=== PATIENT | female | born 1985 | race American Indian/Alaskan Native ===

== ENCOUNTER 2017-09-15 12:40 | Emergency (ER) | payer MEDICAID ==
[2017-09-15 12:56] VITALS: PULSE 84; RESP 18; TEMP 98.4
--- NOTE | 2017-09-15 13:58 | ED PDOC ---
Arrival/HPI - General Chief Complaint: Cough, Cold, Congestion Time Seen by Provider: 09/15/17 13:28 - History of Present Illness Narrative History of Present Illness (Text): 31 y/o F c no significant PMHx p/w cough, congestion, and L sided neck pain x 3 days. Patient reports no production of sputum. Denies fever or stiff neck. Reports rhinorrhea. States that she has pain on the L sided neck under jaw that is painful when she presses it. Denies sick contacts, recent travel. Patient is here with son, who is also registered as an ED patient. Past Medical History - Infectious Disease Hx of Infectious Diseases: None - Reproductive Menopause: No - Psychiatric Hx Substance Use: No - Surgical History Hx Section: Yes Other/Comment: hernia - Anesthesia Hx Anesthesia: No Family/Social History Family/Social History: No Known Family HX Smoking Status: Unknown If Ever Smoked Hx Alcohol Use: No Hx Substance Use: No Allergies/Home Meds Allergies/Adverse Reactions: Allergies No Known Allergies Allergy (Verified 09/15/17 12:57) Review of Systems - Physician Review All systems were reviewed & negative as marked: Yes - Review of Systems Constitutional: absent: Fevers Respiratory: absent: SOB Physical Exam - Physical Exam Narrative Physical Exam (Text): Constitutional: No acute distress. Head: Normocephalic. Atraumatic. Eyes: PERRL. ENT: Moist mucous membranes. Neck: Supple. L sided lymphadenopathy. Cardiovascular: Regular rate. Chest: No tenderness. Respiratory: Clear to auscultation bilaterally. GI: Soft. Nontender. Nondistended. Back: No CVA tenderness. Musculoskeletal: No tenderness or swelling of extremities. Skin: No rash. Neurologic: Alert, no focal deficit. Vital Signs Temp Pulse Resp BP Pulse Ox 09/15/17 13:04 130/69 09/15/17 12:52 98.4 F 84 18 116/97 H 95 Medical Decision Making ED Course and Treatment: Toradol for pain, f/u PMD, return to ED for fever, dyspnea, or any other problem. - Medication Orders Current Medication Orders: Discontinued Medications Ketorolac Tromethamine (Toradol) 60 mg IM STAT STA Stop: 09/15/17 13:41 Disposition/Present on Arrival - Present on Arrival Any Indicators Present on Arrival: No History of DVT/PE: No History of Uncontrolled Diabetes: No Urinary Catheter: No History of Decub. Ulcer: No History Surgical Site Infection Following: None - Disposition Have Diagnosis and Disposition been Completed?: Yes Diagnosis: URI (upper respiratory infection) Disposition: HOME/ ROUTINE Disposition Time: 13:57 Patient Plan: Discharge Patient Problems: Current Active Problems Problem Status Onset URI (upper respiratory infection) Acute Condition: STABLE Discharge Instructions (ExitCare): Lymphadenopathy (ED), Upper Respiratory Infection (ED) Prescriptions: Ibuprofen [Motrin] 600 mg PO Q6 #25 tab Referrals: Romelia Leggett MD [Primary Care Provider] - Follow up with primary Forms: [employer] (French)
[2017-09-15 15:49] VITALS: BP 132/70; O2SAT 96
== END 2017-09-15 15:10 | disposition home or self-care (01) ==
LOC: ED 12:40 → MERGE 12:40 → ED 15:10
DX: J06.9 Acute upper respiratory infection, unspecified (principal)
CPT/HCPCS: 96372; 99283; J1885

== ENCOUNTER 2018-02-23 10:20 | Emergency (ER) | payer MEDICAID ==
[2018-02-23 10:30] VITALS: BMI 32.1
--- NOTE | 2018-02-23 11:15 | ED PDOC ---
Arrival/HPI - General Chief Complaint: Abdominal Pain Time Seen by Provider: 02/23/18 11:10 Historian: Patient EM Caveat: Acuity of Condition - History of Present Illness Narrative History of Present Illness (Text): 02/23/18 11:11 Pt is a 32 yr old female with PMH of umbilical hernia repair 5 yrs ago and bartholin cysts presents today for suprapubic pain and right labial cyst pain. Pt was seen [place] [facility] [place] for the same complaint but left AMA but was advised to have CT. Reports unprotected sex, and a h/o bartholin cysts that express spontaneously. Denies fever, chills, n/v/d back pain or any other complaints. Time/Duration: < week Symptom Onset: Sudden Symptom Course: Unchanged Quality: Aching, Pressure Severity Level: 4 Context: Home Past Medical History - Provider Review Nursing Documentation Reviewed: Yes - Travel History Have you recently traveled outside [place] w/in the past 3 mons?: No - Infectious Disease Hx of Infectious Diseases: None - Psychiatric Hx Substance Use: No - Surgical History Hx Section: Yes Other/Comment: hernia - Anesthesia Hx Anesthesia: No Hx Anesthesia Reactions: No Hx Malignant Hyperthermia: No Family/Social History - Physician Review Nursing Documentation Reviewed: Yes Family/Social History: Unknown Family HX Smoking Status: Current Some Days Smoker Hx Alcohol Use: Yes Frequency of alcohol use: Socially Hx Substance Use: No Allergies/Home Meds Allergies/Adverse Reactions: Allergies No Known Allergies Allergy (Verified 09/15/17 12:57) Review of Systems - Review of Systems Constitutional: Normal Eyes: Normal ENT: Normal Respiratory: Normal Cardiovascular: Normal Gastrointestinal: Abdominal Pain. absent: Stool Changes, Constipation, Diarrhea , Nausea, Appetite Changes Genitourinary Female: Normal, Vaginal Discharge, Other (labial cyst). absent: Dysuria, Frequency, Hematuria, Urine Output Changes Musculoskeletal: Normal Skin: Normal Neurological: Normal Endocrine: Normal Hemo/Lymphatic: Normal Psychiatric: Normal Physical Exam Vital Signs Reviewed: Yes Vital Signs Pulse Resp BP Pulse Ox 02/23/18 12:22 82 16 132/88 99 Temperature: Afebrile Blood Pressure: Normal Pulse: Regular Respiratory Rate: Normal Appearance: Positive for: Well-Appearing, Non-Toxic, Comfortable Pain Distress: Mild Mental Status: Positive for: Alert and Oriented X 3 - Systems Exam Head: Present: Atraumatic, Normocephalic Pupils: Present: PERRL Extroacular Muscles: Present: EOMI Conjunctiva: Present: Normal Mouth: Present: Moist Mucous Membranes Neck: Present: Normal Range of Motion Respiratory/Chest: Present: Clear to Auscultation, Good Air Exchange. No: Respiratory Distress, Accessory Muscle Use Cardiovascular: Present: Regular Rate and Rhythm, Normal S1, S2. No: Murmurs Abdomen: Present: Normal Bowel Sounds. No: Tenderness, Distention, Peritoneal Signs Genitourinary/Pelvic Exam: Present: Vaginal Discharge (white, non-odorous), Other (bartholin cyst, non-fluctuant, tender to palpation on the right labia). No: Vaginal Bleeding, Odor Back: Present: Normal Inspection. No: CVA Tenderness, Midline Tenderness Upper Extremity: Present: Normal Inspection. No: Cyanosis, Edema Lower Extremity: Present: Normal Inspection. No: Edema Neurological: Present: GCS=15, CN II-XII Intact, Speech Normal Skin: Present: Warm, Dry, Normal Color. No: Rashes Psychiatric: Present: Alert, Oriented x 3, Normal Insight, Normal Concentration Medical Decision Making ED Course and Treatment: 02/23/18 11:14 Impression Pt is a 32 yr old female with PMH of umbilical hernia repair 5 yrs ago and bartholin cysts presents today for suprapubic pain and right labial cyst pain. Plan labs, ct, UA assess and dispo Progress note 02/23/18 12:53 Labs reviewed IMPRESSION: No acute intra-abdominal findings There is a 10 x 20 mm cyst on the left side of the vulva. This may represent a labial cyst or abscess. 02/23/18 14:20 Bacteria found on UA but no leukocyte esterase or whites Case DW Dr Awan Will give STAT dose of clindamycin 300 mg PO Home on instructions to do Sitz bath; 02/24/18 13:18 Dr Awan contacted me today after reviewing case again; suggested adding Macrobid to treat possible UTI Pt was contacted and reported feeling very well; no abdominal pain or dysuria; bartholin cyst has reduced; pt very grateful for care she received yesterday Macrobid 100mg PO BID x 7 days sent to [facility] in ; advised to take if she develops any UTI symptoms 02/24/18 13:27 - Lab Interpretations Lab Results: 02/23/18 12:00 02/23/18 12:00 Lab Results 02/23/18 12:00: Sodium 138, Potassium 3.7, Chloride 103, Carbon Dioxide 25, Anion Gap 14, BUN 13, Creatinine 0.7, Est GFR ( Amer) > 60, Est GFR (Non- Af Amer) > 60, Random Glucose 110, Calcium 9.3, Total Bilirubin 0.4, AST 52 H, ALT 41, Alkaline Phosphatase 78, Total Protein 7.8, Albumin 4.4, Globulin 3.4, Albumin/Globulin Ratio 1.3 02/23/18 12:00: Urine Color Yellow, Urine Appearance Clear, Urine pH 6.0, Ur Specific [place] >= 1.030, Urine Protein 30 H, Urine Glucose (UA) Negative, Urine Ketones Trace H, Urine Blood Negative, Urine Nitrate Negative, Urine Bilirubin Small H, Urine Urobilinogen >=8.0, Ur Leukocyte Esterase Negative, Urine RBC 0 - 2, Urine WBC 1 - 3, Ur Epithelial Cells Many, Urine Bacteria Large , Urine Other Uyeast 02/23/18 12:00: WBC 8.6, RBC 4.20, Hgb 11.4 L, Hct 34.7 L, MCV 82.6, MCH 27.1, MCHC 32.9, RDW 13.8, Plt Count 279, MPV 8.9, Gran % 75.2 H, Lymph % (Auto) 15.9 L, [place] % (Auto) 7.2 H, Eos % (Auto) 1.5, Baso % (Auto) 0.2, Gran # 6.43, Lymph # (Auto) 1.4, [place] # (Auto) 0.6, Eos # (Auto) 0.1, Baso # (Auto) 0.02 - RAD Interpretation Narrative RAD Interpretations (Text): 02/23/18 12:53 PROCEDURE: CT Abdomen and Pelvis without intravenous contrast HISTORY: abdominal pain COMPARISON: None. TECHNIQUE: Without contrast. Contrast Dose: Radiation dose: Total exam DLP = Total exam DLP = 745 mGy-cm. This CT exam was performed using one or more of the following dose reduction techniques: Automated exposure control, adjustment of the mA and/or kV according to patient size, and/or use of iterative reconstruction technique. FINDINGS: LOWER THORAX: Unremarkable. LIVER: Unremarkable. No gross lesion or ductal dilatation. GALLBLADDER AND BILE DUCTS: Unremarkable. PANCREAS: Unremarkable. No gross lesion or ductal dilatation. SPLEEN: Unremarkable. ADRENALS: Unremarkable. No mass. KIDNEYS AND URETERS: Unremarkable. No hydronephrosis. No solid mass. VASCULATURE: Unremarkable. No aortic aneurysm. BOWEL: Unremarkable. No obstruction. No gross mural thickening. APPENDIX: Unremarkable. Normal appendix. PERITONEUM: Unremarkable. No free fluid. No free air. LYMPH NODES: Unremarkable. No enlarged lymph nodes. BLADDER: Unremarkable. REPRODUCTIVE: There is a 10 x 20 mm cyst on the left side of the vulva. This may represent a labial cyst or abscess. Image 166 series 3 BONES: No acute fracture. OTHER FINDINGS: None. IMPRESSION: No acute intra-abdominal findings There is a 10 x 20 mm cyst on the left side of the vulva. This may represent a labial cyst or abscess. 02/24/18 13:24 Radiology Orders: 02/23/18 11:15 ABD & PELVIS W/O PO OR IV CONT [CT] Stat - Medication Orders Current Medication Orders: Discontinued Medications Clindamycin HCl (Cleocin) 300 mg PO STAT STA PRN Reason: Protocol Stop: 02/23/18 13:52 Last Admin: 02/23/18 14:02 Dose: 300 mg Disposition/Present on Arrival - Present on Arrival Any Indicators Present on Arrival: Yes History of DVT/PE: No History of Uncontrolled Diabetes: No Urinary Catheter: No History of Decub. Ulcer: No History Surgical Site Infection Following: None - Disposition Have Diagnosis and Disposition been Completed?: Yes Diagnosis: Bartholin gland cyst, Screen for STD (sexually transmitted disease) Disposition: HOME/ ROUTINE Disposition Time: 12:57 Patient Plan: Discharge Condition: GOOD Discharge Instructions (ExitCare): Urinary Tract Infection, Adult (DC), Bartholin's Gland Cyst Additional Instructions: Philomena, thank you for letting us take care of you today. Your provider was DAI Diaz. You were treated for a UTI and Bartholin Gland Cyst. The emergency medical care you received today was directed at your acute symptoms. If you were prescribed any medication, please fill it and take as directed. It may take several days for your symptoms to resolve. Return to the Emergency Department if your symptoms worsen, do not improve, or if you have any other problems. We recommend a Sitz Bath for 2 days and 7 days of an antibiotic to help with your cyst. Please see your supervisory forester in the next few days for care Please contact your doctor or call one of the physicians/clinics you have been referred to that are listed on the Patient Visit Information form that is included in your discharge packet. Bring any paperwork you were given at discharge with you along with any medications you are taking to your follow up visit. Our treatment cannot replace ongoing medical care by a primary care provider (PCP) outside of the emergency department. Thank you for allowing the [facility] team to be part of your care today. If you had an X-Ray or CT scan: A Radiologist will review the ED reading if any change in treatment is needed we will contact you. If you had a blood, urine, or wound culture: It will take several days for the results, if any change in treatment is needed we will contact you. If you had an STI test: It will take 48 hours for the results. Please call after 1 week if you have not heard back. Prescriptions: Clindamycin [Cleocin] 300 mg PO QID 7 Days #28 cap Nitrofurantoin Macrocrystals [Macrobid] 100 mg PO BID 7 Days #14 cap Forms: [employer] ([place]), WORK NOTE
[2018-02-23 12:30] LABS: BASO # 0.02 K/mm3 (0.0-2.0); BASO % 0.2 % (0.0-3.0); EOS # 0.1 (0.0-0.7); EOS % 1.5 % (1.5-5.0); GRAN # 6.43 (1.4-6.5); GRAN % 75.2 % (50.0-68.0); HEMOGLOBIN 11.4 g/dL (12.0-16.0); LYMPH # 1.4 (1.2-3.4); LYMPH % 15.9 % (22.0-35.0); MEAN CELL VOLUME 82.6 fl (80.0-105.0); MEAN CORPUSCULAR HEMOGLOBIN 27.1 pg (25.0-35.0); MEAN CORPUSCULAR HGB CONC 32.9 g/dl (31.0-37.0); MEAN PLATELET VOLUME 8.9 fl (7.0-11.0); MONO # 0.6 (0.1-0.6); MONO % 7.2 % (1.0-6.0); RBC 4.2 10^6/uL (3.5-6.1); RED CELL DISTRIBUTION WIDTH 13.8 % (11.5-14.5); WHITE BLOOD COUNT 8.6 10^3/ul (4.5-11.0)
[2018-02-23 12:34] LABS: URINE BILIRUBIN SMALL (NEGATIVE); URINE BLOOD NEGATIVE (NEGATIVE); URINE GLUCOSE (UA) NEGATIVE (NEGATIVE); URINE LEUKOCYTE ESTERASE NEGATIVE Leu/uL (NEGATIVE); URINE PROTEIN 30 mg/dL (<30 mg/dL); URINE UROBILINOGEN >=8.0 E.U./dL (<1 E.U./dL)
[2018-02-23 12:38] LABS: URINE APPEARANCE CLEAR (CLEAR); URINE COLOR YELLOW (YELLOW)
[2018-02-23 12:40] LABS: ALB/GLOB RATIO 1.3 (1.1-1.8); ALBUMIN 4.4 g/dL (3.0-4.8); ALT/SGPT 41 U/L (7-56); AST/SGOT 52 U/L (14-36); BLOOD UREA NITROGEN 13 mg/dL (7-21); CALCIUM 9.3 mg/dL (8.4-10.5); GFR AFRICAN-AMERICAN > 60; GFR NON-AFRICAN AMERICAN > 60
--- NOTE | 2018-02-23 12:42 | CT ---
PROCEDURE: CT Abdomen and Pelvis without intravenous contrast HISTORY: abdominal pain COMPARISON: None. TECHNIQUE: Without contrast. Contrast Dose: Radiation dose: Total exam DLP = Total exam DLP = 745 mGy-cm. This CT exam was performed using one or more of the following dose reduction techniques: Automated exposure control, adjustment of the mA and/or kV according to patient size, and/or use of iterative reconstruction technique. FINDINGS: LOWER THORAX: Unremarkable. LIVER: Unremarkable. No gross lesion or ductal dilatation. GALLBLADDER AND BILE DUCTS: Unremarkable. PANCREAS: Unremarkable. No gross lesion or ductal dilatation. SPLEEN: Unremarkable. ADRENALS: Unremarkable. No mass. KIDNEYS AND URETERS: Unremarkable. No hydronephrosis. No solid mass. VASCULATURE: Unremarkable. No aortic aneurysm. BOWEL: Unremarkable. No obstruction. No gross mural thickening. APPENDIX: Unremarkable. Normal appendix. PERITONEUM: Unremarkable. No free fluid. No free air. LYMPH NODES: Unremarkable. No enlarged lymph nodes. BLADDER: Unremarkable. REPRODUCTIVE: There is a 10 x 20 mm cyst on the left side of the vulva. This may represent a labial cyst or abscess. Image 166 series 3 BONES: No acute fracture. OTHER FINDINGS: None. IMPRESSION: No acute intra-abdominal findings There is a 10 x 20 mm cyst on the left side of the vulva. This may represent a labial cyst or abscess.
[2018-02-23 12:51] LABS: URINE BACTERIA LARGE (NEG); URINE EPITHELIAL CELLS MANY /hpf (0-5); URINE RBC 0 - 2 /hpf (0-2)
[2018-02-23 13:23] VITALS: BP 132/88; PULSE 82; RESP 16; O2SAT 99
== END 2018-02-23 15:00 | disposition home or self-care (01) ==
LOC: ED 10:20
DX: N75.0 Cyst of Bartholin's gland (principal); Z11.3 Encounter for screening for infections with a predominantly sexual mode of transmission; F17.200 Nicotine dependence, unspecified, uncomplicated

== ENCOUNTER 2018-02-26 11:36 | Emergency (ER) | payer MEDICAID ==
[2018-02-26 11:37] VITALS: BMI 32.1
[2018-02-26 12:08] VITALS: BP 122/73; PULSE 86; RESP 16; TEMP 98.2; O2SAT 98
--- NOTE | 2018-02-26 13:46 | ED PDOC ---
Arrival/HPI - General Chief Complaint: Female Genitourinary Time Seen by Provider: 02/26/18 13:42 Historian: Patient - History of Present Illness Narrative History of Present Illness (Text): 02/26/18 13:43 This 32 yo female presents today with worsening of vulva abscess. Patient stated she has had Bartholin cyst abscess in the past. Patient stated this time abscess started x 9 days ago. Patient was seen in this ED x 3 days ago. She was prescribed Clindamycin and to return if patient wosrn. Patient denies fever, or dysuria. Denies other somatic complains. Patient is also taking Macrobid for UTI Time/Duration: Other (see hpi) Context: Home Past Medical History - Provider Review Nursing Documentation Reviewed: Yes - Infectious Disease Hx of Infectious Diseases: None - Cardiac Hx Cardiac Disorders: No - Pulmonary Hx Respiratory Disorders: No - Neurological Hx Neurological Disorder: No - HEENT Hx HEENT Disorder: No - Renal Hx Renal Disorder: No - Endocrine/Metabolic Hx Endocrine Disorders: No - Hematological/Oncological Hx Blood Disorders: No - Integumentary Hx Dermatological Disorder: No - Musculoskeletal/Rheumatological Hx Musculoskeletal Disorders: No - Gastrointestinal Hx Gastrointestinal Disorders: No - Genitourinary/Gynecological Hx Genitourinary Disorders: Yes Other/Comment: BARTHOLINS CYST - Psychiatric Hx Psychophysiologic Disorder: No Hx Substance Use: No - Surgical History Hx Section: Yes Other/Comment: hernia - Anesthesia Hx Anesthesia: No Hx Anesthesia Reactions: No Hx Malignant Hyperthermia: No Family/Social History - Physician Review Nursing Documentation Reviewed: Yes Family/Social History: Other (noncontributory) Smoking Status: Current Some Days Smoker Hx Alcohol Use: Yes Hx Substance Use: No Allergies/Home Meds Allergies/Adverse Reactions: Allergies No Known Allergies Allergy (Verified 02/26/18 12:02) Review of Systems - Review of Systems Constitutional: Normal. absent: Fatigue, Weight Change, Fevers Eyes: Normal ENT: Normal Respiratory: Normal Cardiovascular: Normal Gastrointestinal: Normal Genitourinary Female: Other (Bartholine cyst abscess) Musculoskeletal: Normal Skin: Normal Neurological: Normal Endocrine: Normal Hemo/Lymphatic: Normal Psychiatric: Normal Physical Exam Vital Signs Temp Pulse Resp BP Pulse Ox 02/26/18 12:03 98.2 F 86 16 122/73 98 Temperature: Afebrile Blood Pressure: Normal Pulse: Regular Respiratory Rate: Normal Appearance: Positive for: Well-Appearing, Non-Toxic, Comfortable Pain Distress: None Mental Status: Positive for: Alert and Oriented X 3 - Systems Exam Head: Present: Atraumatic, Normocephalic Pupils: Present: PERRL Extroacular Muscles: Present: EOMI Conjunctiva: Present: Normal Mouth: Present: Moist Mucous Membranes Neck: Present: Normal Range of Motion Respiratory/Chest: Present: Clear to Auscultation, Good Air Exchange. No: Respiratory Distress, Accessory Muscle Use Cardiovascular: Present: Regular Rate and Rhythm, Normal S1, S2. No: Murmurs Abdomen: No: Tenderness, Distention, Peritoneal Signs Genitourinary/Pelvic Exam: Present: Other ((+) right bartholin cyst abscess. 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 No: Vaginal Discharge, Vaginal Bleeding, Vaginal Lesions Back: Present: Normal Inspection Upper Extremity: Present: Normal Inspection, Normal ROM. No: Cyanosis, Edema Lower Extremity: Present: Normal Inspection, Normal ROM. No: Edema Neurological: Present: GCS=15, CN II-XII Intact, Speech Normal Skin: Present: Warm, Dry, Normal Color. No: Rashes Psychiatric: Present: Alert, Oriented x 3, Normal Insight, Normal Concentration Medical Decision Making ED Course and Treatment: 02/26/18 13:47 Re-evaluation. Patient feels better. Discussed results and plan with patient who expresses understanding. All questions answered and there is agreement with the plan to discharge home with instructions. Patient stable for discharge. Return if symptoms persist or worsen. Re-evaluation Time: 13:47 Reassessment Condition: Re-examined, Improved - Procedure PROCEDURE NOTE (Text): 02/26/18 13:47 PROCEDURE: INCISION & DRAINAGE Performed by the emergency provider Indication: Abscess Location: right vulva Preparation: The area was prepped and draped in the usual sterile fashion and was cleansed with Betadine. Local infiltration of Lidocaine 1% without Epi was used for anesthesia. Procedure: The most fluctuant portion of the abscess was incised with a #11 scalpel. Approximately 5 mL of purulent was obtained. The abscess was packed. A dressing was applied by the RN. Post-Procedure: On exam the abscess is notably less fluctuant. The patient tolerated the procedure well, and there were no complications. Disposition/Present on Arrival - Present on Arrival Any Indicators Present on Arrival: No History of DVT/PE: No History of Uncontrolled Diabetes: No Urinary Catheter: No History of Decub. Ulcer: No History Surgical Site Infection Following: None - Disposition Have Diagnosis and Disposition been Completed?: Yes Diagnosis: Bartholin's gland abscess Disposition: HOME/ ROUTINE Disposition Time: 13:48 Patient Plan: Discharge Condition: GOOD Discharge Instructions (ExitCare): Abscess Incision and Drainage Additional Instructions: Call private doctor for follow up visit in 1-2 days. Return to ED if unable to see your doctor in 2 days. keep wound clean and dry. Continue taking antibiotic prescribed during last ER visit. Return to Emergency sooner if infection worsen or worsening of bleeding within wound. Prescriptions: oxyCODONE/Acetaminophen [Percocet 5/325 mg Tab] 1 ea PO Q6H PRN #5 tab PRN Reason: Pain, Severe (8-10) Referrals: [facility] [Outside] - [facility] with [facility] [Outside] - Follow up with primary Forms: [employer] ([employer]), WORK NOTE
== END 2018-02-26 14:14 | disposition home or self-care (01) ==
LOC: ED 11:36
DX: N75.1 Abscess of Bartholin's gland (principal)

== ENCOUNTER 2018-04-04 13:59 | Emergency (ER) | payer MEDICAID ==
[2018-04-04 14:02] VITALS: BMI 32.5
[2018-04-04 14:12] VITALS: TEMP 98.5
[2018-04-04] MEDS ORDERED: Lidocaine 5% Patch TD STA (14:57)
[2018-04-04] MEDS ORDERED: Oxycodone/Acetaminophen 5/325 mg Tab PO STA (14:57)
--- NOTE | 2018-04-04 15:01 | ED PDOC ---
Arrival/HPI - General Chief Complaint: Back Pain Time Seen by Provider: 04/04/18 14:56 Historian: Patient - History of Present Illness Narrative History of Present Illness (Text): 04/04/18 14:58 32 year old female, pmh including chronic neck pain, nkda, complaining of neck pain started this morning from sleeping last night. Pt. stated that she didn't sleep well last night, woke up with neck pain, no fever or chills, no neck stiffness, no rash, no numbness or tingling, no shoulder pain, no pain when moving the extremities, no other medical or psychological complaints. Past Medical History - Provider Review Nursing Documentation Reviewed: Yes - Infectious Disease Hx of Infectious Diseases: None - Cardiac Hx Cardiac Disorders: No - Pulmonary Hx Respiratory Disorders: No - Neurological Hx Neurological Disorder: No - HEENT Hx HEENT Disorder: No - Renal Hx Renal Disorder: No - Endocrine/Metabolic Hx Endocrine Disorders: No - Hematological/Oncological Hx Blood Disorders: No - Integumentary Hx Dermatological Disorder: No - Musculoskeletal/Rheumatological Hx Musculoskeletal Disorders: No - Gastrointestinal Hx Gastrointestinal Disorders: No - Genitourinary/Gynecological Hx Genitourinary Disorders: Yes Other/Comment: BARTHOLINS CYST - Psychiatric Hx Psychophysiologic Disorder: No Hx Substance Use: No - Surgical History Hx Section: Yes Other/Comment: hernia - Anesthesia Hx Anesthesia: Yes Hx Anesthesia Reactions: No Hx Malignant Hyperthermia: No Family/Social History - Physician Review Nursing Documentation Reviewed: Yes Family/Social History: Unknown Family HX Smoking Status: Current Some Days Smoker Hx Alcohol Use: Yes Hx Substance Use: No Allergies/Home Meds Allergies/Adverse Reactions: Allergies No Known Allergies Allergy (Verified 04/04/18 14:30) Review of Systems - Review of Systems Constitutional: absent: Fatigue, Fevers Eyes: absent: Vision Changes ENT: absent: Hearing Changes, Rhinorrhea Respiratory: absent: SOB, Cough Cardiovascular: absent: Chest Pain Gastrointestinal: absent: Abdominal Pain, Nausea, Vomiting Musculoskeletal: Neck Pain, Myalgias. absent: Arthralgias, Back Pain, Joint Swelling Skin: absent: Rash, Pruritis Neurological: absent: Headache, Dizziness Hemo/Lymphatic: absent: Adenopathy Psychiatric: absent: Anxiety, Depression Physical Exam Vital Signs Reviewed: Yes Vital Signs Temp Pulse Resp BP Pulse Ox 04/04/18 14:11 98.5 F 78 19 176/80 H 98 Temperature: Afebrile Blood Pressure: Hypertensive Pulse: Regular Respiratory Rate: Normal Appearance: Positive for: Well-Appearing, Non-Toxic, Comfortable Pain Distress: Moderate Mental Status: Positive for: Alert and Oriented X 3 - Systems Exam Head: Present: Atraumatic, Normocephalic Pupils: Present: PERRL Extroacular Muscles: Present: EOMI Conjunctiva: Present: Normal Ears: Present: NORMAL TM, Normal Canal. No: Erythema Mouth: Present: Moist Mucous Membranes Pharnyx: No: ERYTHEMA, EXUDATE, TONSILS ENLARGED Nose (External): Present: Atraumatic. No: Abrasion, Contusion, Laceration, Lesions, Other Nose (Internal): Present: Normal Inspection, No Active Bleeding. No: Rhinorrhea , Septal Hematoma, Epistaxis Neck: Present: Normal Range of Motion, Paraspinal Tenderness (+ttp on the lt. paraspinal/trapezius muscle region, no rash, no step off), Trachea Midline. No : Meningeal Signs, MIDLINE TENDERNESS, Lymphadenopathy Respiratory/Chest: Present: Clear to Auscultation, Good Air Exchange. No: Respiratory Distress, Accessory Muscle Use Cardiovascular: Present: Regular Rate and Rhythm, Normal S1, S2. No: Murmurs Abdomen: No: Tenderness, Distention, Peritoneal Signs Back: Present: Normal Inspection Upper Extremity: Present: Normal Inspection. No: Cyanosis, Edema Lower Extremity: Present: Normal Inspection, Neurovascularly Intact. No: Edema Neurological: Present: GCS=15, CN II-XII Intact, Speech Normal, Motor Func Grossly Intact, Gait Normal, Memory Normal Skin: Present: Warm, Dry, Normal Color. No: Rashes Psychiatric: Present: Alert, Oriented x 3, Normal Insight, Normal Concentration Medical Decision Making ED Course and Treatment: 04/04/18 15:00 -toradol IM/percocet/lidoderm -Observe and reassess 04/04/18 16:06 -Pain resolved, feeling much better, moving the neck and shoulders without any pain actively, request to be discharged home,. -Discharge home with motrin, flexeril, lidoderm, heat compression, follow up with your own pmd and specialist within2 days, return to the ER for any new or worsening signs or symptoms. - Medication Orders Current Medication Orders: Discontinued Medications Ketorolac Tromethamine (Toradol) 60 mg IM STAT STA Stop: 04/04/18 14:58 Last Admin: 04/04/18 15:15 Dose: 60 mg MAR Pain Assessment Document 04/04/18 15:15 RD (Rec: 04/04/18 15:15 RD [id number]) Pain Reassessment Is this a pain reassessment? No Sleep Is patient sleeping during reassessment? No Presence of Pain Presence of Pain Yes IM Administration Charges Document 04/04/18 15:15 RD (Rec: 04/04/18 15:15 RD [id number]) Injection Site MAR Injection Site Right Deltoid Charges for Administration # of IM Administrations 1 Lidocaine (Lidoderm) 1 ea TD STAT STA Stop: 04/04/18 14:58 Last Admin: 04/04/18 15:14 Dose: 1 ea MAR Transdermal Patch Site Document 04/04/18 15:14 RD (Rec: 04/04/18 15:14 RD [id number]) Transdermal Patch Site Transdermal Patch Site Left Shoulder Oxycodone/Acetaminophen (Percocet 5/325 Mg Tab) 1 tab PO STAT STA Stop: 04/04/18 14:58 Last Admin: 04/04/18 15:15 Dose: 1 tab MAR Pain Assessment Document 04/04/18 15:15 RD (Rec: 04/04/18 15:15 RD [id number]) Pain Reassessment Is this a pain reassessment? No Sleep Is patient sleeping during reassessment? No Presence of Pain Presence of Pain Yes - PA / [employer] / Resident Statement MD/DO has reviewed & agrees with the documentation as recorded. Disposition/Present on Arrival - Present on Arrival Any Indicators Present on Arrival: No History of DVT/PE: No History of Uncontrolled Diabetes: No Urinary Catheter: No History of Decub. Ulcer: No History Surgical Site Infection Following: None - Disposition Have Diagnosis and Disposition been Completed?: Yes Diagnosis: Chronic neck pain Disposition: HOME/ ROUTINE Disposition Time: 15:01 Patient Plan: Discharge Condition: IMPROVED Additional Instructions: -Discharge home with motrin, flexeril, lidoderm, heat compression, follow up with your own pmd and specialist within2 days, return to the ER for any new or worsening signs or symptoms. Prescriptions: Cyclobenzaprine [Cyclobenzaprine HCl] 10 mg PO TID PRN #21 tab PRN Reason: Other Ibuprofen [Motrin Tab] 600 mg PO TID PRN #21 tab PRN Reason: Other Lidocaine 5% [Lidoderm] 1 patch TP DAILY PRN #14 patch PRN Reason: Other Referrals: Romelia Leggett MD [Primary Care Provider] - Follow up with primary Lilliam Stevens MD [Staff Provider] - Follow up with primary Forms: WORK NOTE
[2018-04-04 16:18] VITALS: O2SAT 100
[2018-04-04 16:53] VITALS: BP 152/90; PULSE 62; RESP 19
== END 2018-04-04 16:48 | disposition home or self-care (01) ==
LOC: ED 13:59
DX: G89.29 Other chronic pain (principal); M54.2 Cervicalgia
CPT/HCPCS: 96372; 99283; J1885

== ENCOUNTER 2018-06-16 14:21 | Emergency (ER) | payer MEDICAID ==
[2018-06-16 14:49] VITALS: RESP 18; TEMP 98.4; O2SAT 99; BMI 30.9
--- NOTE | 2018-06-16 15:22 | ED PDOC ---
Arrival/HPI - General Chief Complaint: Female Genitourinary Time Seen by Provider: 06/16/18 14:48 Historian: Patient - History of Present Illness Narrative History of Present Illness (Text): 32 y/o F presenting with right sided vulvar pain. Patient reports the pain starting 1 week ago on the right with intermittent dizziness. She reports having a pea sized mass increasing size that worsens with direct contact/ pressure as well as sitting. She denies using any medications/creams or shaving the area. Patient reports the mass as fluctuant and similar in presentation to her previous Bartholin's gland cyst on the right that required drainage. Patient denies having multiple sexual partners or recent sexual activity. She reports her LMP last week. She denies any fevers, chills, chest pain, back pain , vaginal bleeding, dysuria, hematuria, abdominal pain, emesis or nausea at this time. PCP: [facility] Time/Duration: 1 week Symptom Onset: Gradual Symptom Course: Worsening Severity Level: Moderate Activities at Onset: Rest Context: Home Past Medical History - Provider Review Nursing Documentation Reviewed: Yes - Travel History Have you recently traveled outside [place] w/in the past 3 mons?: No - Infectious Disease Hx of Infectious Diseases: None - Cardiac Hx Cardiac Disorders: No - Pulmonary Hx Respiratory Disorders: No - Neurological Hx Neurological Disorder: No - HEENT Hx HEENT Disorder: No - Renal Hx Renal Disorder: No - Endocrine/Metabolic Hx Endocrine Disorders: No - Hematological/Oncological Hx Blood Disorders: No - Integumentary Hx Dermatological Disorder: No - Musculoskeletal/Rheumatological Hx Musculoskeletal Disorders: No - Gastrointestinal Hx Gastrointestinal Disorders: No - Genitourinary/Gynecological Hx Genitourinary Disorders: Yes Other/Comment: BARTHOLINS CYST - Psychiatric Hx Psychophysiologic Disorder: No Hx Substance Use: No - Surgical History Hx Section: Yes Other/Comment: hernia - Anesthesia Hx Anesthesia: Yes Hx Anesthesia Reactions: No Hx Malignant Hyperthermia: No Family/Social History - Physician Review Nursing Documentation Reviewed: Yes Family/Social History: Unknown Family HX Smoking Status: Current Some Days Smoker Hx Alcohol Use: Yes Hx Substance Use: No Allergies/Home Meds Allergies/Adverse Reactions: Allergies No Known Allergies Allergy (Verified 04/04/18 14:30) Review of Systems - Physician Review All systems were reviewed & negative as marked: Yes - Review of Systems Genitourinary Female: absent: Dysuria, Frequency, Hematuria Physical Exam Vital Signs Reviewed: Yes Vital Signs Temp Pulse Resp BP Pulse Ox 06/16/18 16:07 69 18 135/85 99 06/16/18 14:49 98.4 F 74 18 139/95 H 99 06/16/18 14:48 98.4 F 74 18 139/95 H 99 Temperature: Afebrile Blood Pressure: Normal Pulse: Regular Respiratory Rate: Normal Appearance: Positive for: Well-Appearing Mental Status: Positive for: Alert and Oriented X 3 - Systems Exam Head: Present: Atraumatic, Normocephalic Pupils: Present: PERRL Extroacular Muscles: Present: EOMI Conjunctiva: Present: Normal Mouth: Present: Moist Mucous Membranes Neck: Present: Normal Range of Motion Respiratory/Chest: Present: Clear to Auscultation, Good Air Exchange. No: Respiratory Distress, Accessory Muscle Use Cardiovascular: Present: Regular Rate and Rhythm, Normal S1, S2. No: Murmurs Abdomen: No: Tenderness, Distention, Peritoneal Signs Genitourinary/Pelvic Exam: Present: Vaginal Discharge (white discharge noted within vaginal vault.), Other (Large fluctuate mass at 7 o'clock position near labia minora. Tender to touch.). No: Adenexal Tenderness, Cervical Motion Tendernes Back: Present: Normal Inspection Upper Extremity: Present: Normal Inspection. No: Cyanosis, Edema Lower Extremity: Present: Normal Inspection. No: Edema Neurological: Present: GCS=15, CN II-XII Intact, Speech Normal Skin: Present: Warm, Dry, Normal Color. No: Rashes Psychiatric: Present: Alert, Oriented x 3, Normal Insight, Normal Concentration Medical Decision Making ED Course and Treatment: 06/16/18 Impression: 32 year old female who is complaining of right sided vulvar pain that started 1 week ago with a mass increasing in size, and intermittent dizziness. Differential Diagnosis included but are not limited to: Bartholin gland cyst STI Plan: -- Valium -- Toradol -- Lidocaine -- Reassess and disposition Prior Visits: Notes and results from previous visits were reviewed. Progress Notes: 06/16/18 15:54 Discussed case with resident service coordinator, who is aware of and refuses consult as he believes that gynecology consult is more appropriate. Will consult [employer]. 06/16/18 16:27 - Medication Orders Current Medication Orders: Discontinued Medications Diazepam (Valium) 5 mg PO ONCE ONE PRN Reason: Protocol Stop: 06/16/18 16:01 Last Admin: 06/16/18 16:18 Dose: 5 mg Ketorolac Tromethamine (Toradol) 60 mg IM STAT STA Stop: 06/16/18 16:02 Last Admin: 06/16/18 16:20 Dose: 60 mg MAR Pain Assessment Document 06/16/18 16:20 HI (Rec: 06/16/18 16:21 HI [id number]) Pain Reassessment Is this a pain reassessment? No Sleep Is patient sleeping during reassessment? No Presence of Pain Presence of Pain Yes Description Description Constant Pain Behavior Moaning Facial Grimacing IM Administration Charges Document 06/16/18 16:20 HI (Rec: 06/16/18 16:21 HI [facility]) Injection Site MAR Injection Site Left Deltoid Charges for Administration # of IM Administrations 1 Lidocaine HCl (Lidocaine 1% (20ml)) 20 ml IJ STAT STA Stop: 06/16/18 15:59 - Scribe Statement The provider has reviewed the documentation as recorded by the Willyiblarry Henderson Provider Scribe Attestation: All medical record entries made by the Scribe were at my direction and personally dictated by me. I have reviewed the chart and agree that the record accurately reflects my personal performance of the history, physical exam, medical decision making, and the department course for this patient. I have also personally directed, reviewed, and agree with the discharge instructions and disposition. Disposition/Present on Arrival - Present on Arrival Any Indicators Present on Arrival: No History of DVT/PE: No History of Uncontrolled Diabetes: No Urinary Catheter: No History of Decub. Ulcer: No History Surgical Site Infection Following: None - Disposition Have Diagnosis and Disposition been Completed?: Yes Diagnosis: Bartholin gland cyst Disposition Time: 16:35 Patient Plan: Discharge Condition: IMPROVED Prescriptions: Clindamycin [Cleocin] 300 mg PO TID 10 Days #30 cap Ibuprofen [Motrin Tab] 800 mg PO Q6H PRN 6 Days #24 tab PRN Reason: Pain, Moderate (4-7) Sulfamethoxazole/Trimethoprim [Bactrim DS 800 mg-160 mg] 1 tab PO DAILY 10 Days #10 tab Forms: [employer] (Greenlandic)
[2018-06-16] MEDS ORDERED: Lidocaine 1% Inj (20ml) IJ STA (15:58)
[2018-06-16 16:07] VITALS: BP 135/85; PULSE 69
[2018-06-16] MEDS ORDERED: LIDOCAIN/EPI 1-0.001% 10ML INJ SOL IJ ONE (16:08)
== END 2018-06-16 16:54 | disposition home or self-care (01) ==
LOC: ED 14:21
DX: N75.0 Cyst of Bartholin's gland (principal)
CPT/HCPCS: 56420; 96372; 99283; J1885